=== PATIENT | female | born 1965 | race Caucasian/White ===

== ENCOUNTER 2018-01-03 12:52 | Observation (INO) ==
[2018-01-03 13:16] VITALS: BMI 25.7
[2018-01-03] MEDS ORDERED: ASPIRIN 81 MG CHEWTAB ONE (13:18)
--- NOTE | 2018-01-03 13:19 | RAD ---
Examination: Portable AP chest History: Hurting in chest Findings: Normal heart size with clear lungs and pleural spaces. Impression: No acute or significant chest findings. Reported By:
[2018-01-03] MEDS: ASPIRIN 81 MG CHEWTAB PO ONE (13:23)
[2018-01-03] MEDS ORDERED: ZOFRAN INJ 4 MG VIAL ONE (13:34)
[2018-01-03] MEDS ORDERED: ZOFRAN INJ 4 MG VIAL IVP ONE (13:37)
[2018-01-03 13:43] LABS: BLOOD UREA NITROGEN 6 mg/dL (7-18); CHLORIDE 104 mmol/L (98-107); COR NA(FOR HYPERGLY) 140 mmol/L (136-145); SODIUM 140 mmol/L (136-145); TROPONIN I < 0.02 ng/mL (0-1.5); eGFR NON BLACK RACES > 60 (>60)
[2018-01-03 13:47] LABS: ALANINE AMINOTRANSFERASE 24 Units/L (12-78); ALBUMIN 3.7 g/dL (3.4-5.0); ALKALINE PHOSPHATASE 65 Units/L (46-116); ASPARTATE AMINO TRANSFERASE 18 Units/L (15-37); CREATINE KINASE 81 Units/L (26-192); CREATINE KINASE MB < 1.0 ng/mL (0-4.0); MAGNESIUM 1.8 mg/dL (1.7-2.9); TOTAL PROTEIN 7.2 g/dL (6.4-8.2)
[2018-01-03 13:49] LABS: CKMB % 1.2 % (<4)
[2018-01-03 13:50] LABS: BASOPHILS # (AUTO) 0.1 X10^3/uL (0.0-0.1); BASOPHILS % (AUTO) 0.6 % (0.2-1.0); EOSINOPHILS # (AUTO) 0.2 x10^3/uL (0.0-0.2); EOSINOPHILS % (AUTO) 2.5 % (0.9-2.9); HEMATOCRIT 39.5 % (36.0-47.0); HEMOGLOBIN 14.2 g/dL (12.0-16.0); LYMPHOCYTES # (AUTO) 1.6 X10^3/uL (1.3-2.9); LYMPHOCYTES % (AUTO) 16.8 % (21.0-51.0); MEAN CORPUSCULAR HEMOGLOBIN 31.6 pg (27.0-34.0); MEAN CORPUSCULAR HGB CONC 35.9 g/dL (33.0-35.0); MEAN CORPUSCULAR VOLUME 88.1 fL (80.0-100.0); MEAN PLATELET VOLUME 7.9 fL (7.4-11.0); MONOCYTES # (AUTO) 0.4 x10^3/uL (0.3-0.8); MONOCYTES % (AUTO) 4.5 % (0.0-13.0); NEUTROPHILS # (AUTO) 7.4 x10^3/uL (2.2-4.8); NEUTROPHILS % (AUTO) 75.6 % (42.0-75.0); PLATELET COUNT 306 X10^3/uL (150.0-450.0); RED BLOOD COUNT 4.48 X10^6/uL (3.5-5.4); RED CELL DISTRIBUTION WIDTH 12.3 % (11.6-16.5); WHITE BLOOD COUNT 9.8 X10^3/uL (3.6-10.0)
--- NOTE | 2018-01-03 15:43 | DR.CP ---
HPI - Time Seen Time seen: 12:50 - PCP Primary Care Physician: chapincito bey - HPI Comment HPI Comment: PAIN ASSOCIATED WITH WEAKNESS AND SOB. S/L NTG DID NOT RELIEF PAIN. PATIENT SAID PAIN IS GETTING WORSE. NO FEVER, DYSURIA OR PRODUCTIVE COUGH. - Complaint Chief Complaint Doctor Comments: CHEST PAIN, INTERMITTENT PRESSURE LIKE PAIN, NON RADIATING TIMES 2 DAYS. Chief Complaint:: pt stated 2 days ago her chest started hurting and it has gotton worse. she stated she took 2 nitro at home with no relief - Reviewed Nurses Notes Review: Yes - Source History Provided: Patient - Mode of Arrival Mode of Arrival: Ambulatory - Timing Onset of Chief Complaint: 01/01/18 Came on: Suddenly - Duration Duration: Intermittent Duration: Days - Location Location of Chest Pain: Left Chest Pain Radiation Location: None - Context Onset: At rest Cardiac Risk Factors: None PE Risk Factors: None History of: None Prehospital Care: [facility] Nitro - Quality Quality: Pressure like, Heavy - Severity Severity: Moderate - Modifying Factors Worsens: Nothing Impoves: Nothing - Associated Signs and Symptoms Associated Signs and Symptoms: Shortness of Breath PMH - PMH Past Medical History: Yes Past Medical History: Anxiety Past Surgical History: No Surgical History: Unknown - Family History History of Family Medical Conditions: No - Social History Does patient currently use any type of tobacco product: No Have you used tobacco products in the last 12 months: No Type of Tobacco Use: None Does any household member use tobacco: No Alcohol Use: None Do you use any recreational Drugs:: No Lives With: Mom Lives Where: Home - infectious screening In the last 2 months have you had wt loss of >10#?: NO Have you had fever, night sweats or hemotysis?: No Have you traveled outside the country in the last 6 months?: No Isolation: Standard ROS - Review of Systems Constitutional: Weakness, Fatigue. negative: Chills, Fever Eyes: No Symptoms Reported ENTM: No Symptoms Reported Respiratoy: Short of Breath. negative: Productive Cough, Non-Productive Cough, Moist Cough, Wheezing, Hemoptysis Cardiovascular: Chest Pain Gastrointestinal/Abdominal: No Symptoms Reported. negative: Abdominal Pain, Diarrhea, Nausea, Other Genitourinary: No Symptoms Reported. negative: Dysuria, Frequency, Hematuria Neurological: Weakness, Dizziness. negative: Headache Musculoskeletal: Muscle Pain Integumentary: No Symptoms Reported Hematologic/Lymphatic: No Symptoms Reported Endocrine: No Symptoms Reported All Other Systems: Reviewed and Negative PE - General Limitations: No Limitations General Appearance: Alert - Head Head Exam: Normal Inspection - Eyes Eye exam: Normal Appearance - ENT ENT Exam: Normal External Ear Exam - Chest Chest Inspection: Symmetric Chest Wall Rise - Respiratory Respiratory Exam: Normal Lung Sounds Bilat Respiratory Exam: Bilateral Clear to Auscultation - Cardiovascular Cardiovascular Exam: Regular Rate, Normal Rhythm, Normal Heart Sounds Pulse: Normal, Radial, Femoral Edema: Normal - Abdominal Exam Abdominal Exam: Normal Bowel Sounds, Soft. negative: Tenderness - Extremities Extremities Exam: Normal Inspection - Back Back Exam: Normal Inspection - Neurologic Neurological Exam: Alert, Oriented X3, CN II-XII Intact. negative: Motor Sensory Deficit - Psychiatric Psychiatric Exam: Normal Affect, Normal Mood - Skin Skin Exam: Normal Color - Vitals Vitals: Temperature 98.9 F Pulse Rate [Brachial] 73 Pulse Rate 78 Respiratory Rate 22 Blood Pressure [Right Arm] 162/78 Blood Pressure 194/89 O2 Sat by Pulse Oximetry 100 MDM - Differential Diagnosis Differential Diagnosis: Angina, Chest Wall Pain, Cholelithasis, CHF, Costochondritis, Esophageal Reflux/Spasm, Myocardial Infarction, Pericarditis, Pleuritis, Pancreatitis, Pneumonia, Pneumothorax, Pulmonary Embolus Course - Treatment Treatment: SEE ORDERS. - Consultation Consultation Comments: DISCUSS PATIENT WITH DR. SANZ. HE WILL ADMIT PATIENT. - Education/Counseling Education/Counseling: Patient, Education Educated On: Diagnosis, Needs for Follow Up ROR - Labs Reviewed Laboratory Results Reviewed?: Yes Result Diagrams: 01/04/18 05:50 01/04/18 05:50 - XRAY XRAY Interpreted by: Radiologist XRAY Findings: REPORT DISCUSS WITH PATIENT. - EKG Rhythm: NSR (EKG NOTED.) - Labs Reviewed Laboratory: WBC 6.9 X10^3/uL (3.6-10.0) 01/04/18 05:50 RBC 4.45 X10^6/uL (3.5-5.4) 01/04/18 05:50 Hgb 14.1 g/dL (12.0-16.0) 01/04/18 05:50 Hct 39.1 % (36.0-47.0) 01/04/18 05:50 MCV 87.9 fL (80.0-100.0) 01/04/18 05:50 MCH 31.7 pg (27.0-34.0) 01/04/18 05:50 MCHC 36.1 g/dL (33.0-35.0) H 01/04/18 05:50 RDW 12.6 % (11.6-16.5) 01/04/18 05:50 Plt Count 255 X10^3/uL (150.0-450.0) 01/04/18 05:50 MPV 7.9 fL (7.4-11.0) 01/04/18 05:50 Neut % (Auto) 65.1 % (42.0-75.0) 01/04/18 05:50 Lymph % (Auto) 24.2 % (21.0-51.0) 01/04/18 05:50 [place] % (Auto) 5.8 % (0.0-13.0) 01/04/18 05:50 Eos % (Auto) 4.4 % (0.9-2.9) H 01/04/18 05:50 Baso % (Auto) 0.5 % (0.2-1.0) 01/04/18 05:50 Neut # (Auto) 4.5 x10^3/uL (2.2-4.8) 01/04/18 05:50 Lymph # (Auto) 1.7 X10^3/uL (1.3-2.9) 01/04/18 05:50 [place] # (Auto) 0.4 x10^3/uL (0.3-0.8) 01/04/18 05:50 Eos # (Auto) 0.3 x10^3/uL (0.0-0.2) H 01/04/18 05:50 Baso # (Auto) 0.0 X10^3/uL (0.0-0.1) 01/04/18 05:50 Absolute Nucleated RBC 0.1 /100WBC 01/04/18 05:50 INR Target Range - 01/03/18 13:10 INR 1.04 (0.8-1.3) 01/03/18 13:10 APTT 25.9 SECONDS (22.9-36.5) 01/03/18 13:10 PTT Comment - 01/03/18 13:10 D-Dimer 134 ng/mL (0-400) 01/03/18 13:10 Sodium 141 mmol/L (136-145) 01/04/18 05:50 Corrected Sodium TNP 01/04/18 05:50 Potassium 3.9 mmol/L (3.5-5.1) 01/04/18 05:50 Chloride 106 mmol/L (98-107) 01/04/18 05:50 Carbon Dioxide 29.5 mmol/L (21-32) 01/04/18 05:50 BUN 9 mg/dL (7-18) 01/04/18 05:50 Creatinine 0.90 mg/dL (0.55-1.02) 01/04/18 05:50 Est GFR (MDRD) Af Amer > 60 (>60) 01/04/18 05:50 Est GFR (MDRD) Non-Af > 60 (>60) 01/04/18 05:50 Glucose 104 mg/dL (65-99) H 01/04/18 05:50 Calcium 7.5 mg/dL (8.5-10.1) L 01/04/18 05:50 Corrected Calcium 8.1 mg/dL (8.5-10.1) L 01/04/18 05:50 Magnesium 1.8 mg/dL (1.7-2.9) 01/03/18 13:10 Total Bilirubin 0.60 mg/dL (0.2-1.0) 01/04/18 05:50 AST 19 Units/L (15-37) 01/04/18 05:50 ALT 21 Units/L (12-78) 01/04/18 05:50 Alkaline Phosphatase 59 Units/L (46-116) 01/04/18 05:50 Creatine Kinase 71 Units/L (26-192) 01/04/18 01:00 CK-MB (CK-2) < 1.0 ng/mL (0-4.0) 01/04/18 01:00 CK/CKMB % Calc 1.4 % (<4) 01/04/18 01:00 Troponin I < 0.02 ng/mL (0-1.5) 01/04/18 01:00 Total Protein 6.8 g/dL (6.4-8.2) 01/04/18 05:50 Albumin 3.3 g/dL (3.4-5.0) L 01/04/18 05:50 Globulin 3.5 g/dL (2.5-4.5) 01/04/18 05:50 Albumin/Globulin Ratio 0.9 Ratio (1.1-2.1) L 01/04/18 05:50 Triglycerides 200 mg/dL (0-150) H 01/04/18 05:50 Cholesterol 269 mg/dL (0-200) H 01/04/18 05:50 LDL Cholesterol, Calc 198 mg/dL (0-100) H 01/04/18 05:50 HDL Cholesterol 31 mg/dL (40-60) L 01/04/18 05:50 Cholesterol/HDL Ratio 8.7 (0.0-5.0) H 01/04/18 05:50 - Diagnosis Discharge Problem: Chest pain Qualifiers: Chest pain type: precordial pain Qualified Code(s): R07.2 - Precordial pain - Discharge Plan Disposition: ADMITTED INPATIENT Condition: Stable
[2018-01-03] MEDS ORDERED: TORADOL 30 MG VIAL IVP ONE (16:36)
[2018-01-03] MEDS ORDERED: TORADOL 30 MG VIAL ONE (16:37)
[2018-01-03] MEDS: NS 1000 ML 1,000 ML IV SCH (18:05)
[2018-01-03 19:49] LABS: CREATINE KINASE 70 Units/L (26-192); CREATINE KINASE MB < 1.0 ng/mL (0-4.0); TROPONIN I < 0.02 ng/mL (0-1.5)
[2018-01-03 19:50] LABS: CKMB % 1.4 % (<4)
[2018-01-04 01:35] LABS: CKMB % 1.4 % (<4); CREATINE KINASE 71 Units/L (26-192); CREATINE KINASE MB < 1.0 ng/mL (0-4.0); TROPONIN I < 0.02 ng/mL (0-1.5)
[2018-01-04 06:24] LABS: ALANINE AMINOTRANSFERASE 21 Units/L (12-78); ALBUMIN 3.3 g/dL (3.4-5.0); ALKALINE PHOSPHATASE 59 Units/L (46-116); ASPARTATE AMINO TRANSFERASE 19 Units/L (15-37); BLOOD UREA NITROGEN 9 mg/dL (7-18); CALCIUM 7.5 mg/dL (8.5-10.1); CARBON DIOXIDE 29.5 mmol/L (21-32); CHLORIDE 106 mmol/L (98-107); CHOL/HDL RATIO 8.7 (0.0-5.0); CHOLESTEROL 269 mg/dL (0-200); COR CA(FOR HYPOALB) 8.1 mg/dL (8.5-10.1); HDL CHOLESTEROL 31 mg/dL (40-60); SODIUM 141 mmol/L (136-145); TOTAL PROTEIN 6.8 g/dL (6.4-8.2); TRIGLYCERIDES 200 mg/dL (0-150); eGFR NON BLACK RACES > 60 (>60)
[2018-01-04 06:33] LABS: BASOPHILS % (AUTO) 0.5 % (0.2-1.0); EOSINOPHILS # (AUTO) 0.3 x10^3/uL (0.0-0.2); EOSINOPHILS % (AUTO) 4.4 % (0.9-2.9); HEMATOCRIT 39.1 % (36.0-47.0); HEMOGLOBIN 14.1 g/dL (12.0-16.0); LYMPHOCYTES # (AUTO) 1.7 X10^3/uL (1.3-2.9); LYMPHOCYTES % (AUTO) 24.2 % (21.0-51.0); MEAN CORPUSCULAR HEMOGLOBIN 31.7 pg (27.0-34.0); MEAN CORPUSCULAR HGB CONC 36.1 g/dL (33.0-35.0); MEAN CORPUSCULAR VOLUME 87.9 fL (80.0-100.0); MEAN PLATELET VOLUME 7.9 fL (7.4-11.0); MONOCYTES # (AUTO) 0.4 x10^3/uL (0.3-0.8); MONOCYTES % (AUTO) 5.8 % (0.0-13.0); NEUTROPHILS # (AUTO) 4.5 x10^3/uL (2.2-4.8); NEUTROPHILS % (AUTO) 65.1 % (42.0-75.0); PLATELET COUNT 255 X10^3/uL (150.0-450.0); RED BLOOD COUNT 4.45 X10^6/uL (3.5-5.4); RED CELL DISTRIBUTION WIDTH 12.6 % (11.6-16.5); WHITE BLOOD COUNT 6.9 X10^3/uL (3.6-10.0)
[2018-01-04] MEDS ORDERED: ZOFRAN INJ 4 MG VIAL IVP PRN (09:43)
[2018-01-04] MEDS ORDERED: MORPHINE SULFATE INJ 2 MG INJ IVP PRN (09:43)
[2018-01-04] MEDS: TYLENOL 325 MG TAB PO PRN (12:58)
[2018-01-04] MEDS: ASPIRIN 81 MG CHEWTAB PO ONE (12:59)
[2018-01-04] MEDS: NS 1000 ML 1,000 ML IV SCH ×2 (13:00→20:26)
--- NOTE | 2018-01-04 17:59 | DR.H&P ---
H&P - History & Physical for Day of: H&P Date: 01/03/18 - Chief Complaint Chief Complaint: CHEST PAIN - History of Present Illness History of Present Illness: 52 WF ER ADMISSION AFTER PRESENTING WITH CO CHEST PAIN RELEIVED WITH NITROGLYCERINE THEN RETURNED. PT STATES SHE HAS HX CAD, NO PREVIOUS CATH. PT UNDER THE CARE OF DR BUI IN [place], PT HAS PMH OF CATHIE, HRT, HYPERLIPIDEMIA AND FAMILY HX OF CAD. PT STATES HER CP WAS ACCOMPANIED BY SWEATING AND SOB. PT STATES SHE HAD LAST ABNORMAL STRESS TEST ONE YEAR AGO. PT ADMITTED R/O AMI, CARDIAC MONITORING - Past Medical History Past Medical History: Anxiety, Coronary Artery Disease - Past Surgical History Surgical History: Other - Family History Family Medical History: Diabetes Mellitus, [place], Hypertension - Social History Does patient currently use any type of tobacco product: No Have you used tobacco products in the last 12 months: No Type of Tobacco Use: None Does any household member use tobacco: No Alcohol Use: None Drug Use: None - Medications Home Medications: alprazolam [Xanax] 1 mg PO TID PRN 01/03/18 [History Confirmed 01/03/18] estrogens-methyltestosterone 1 tab PO DAILY 01/03/18 [History Confirmed 01/03/18 ] gabapentin [Neurontin] 200 mg PO TID 01/03/18 [History Confirmed 01/03/18] loratadine [Claritin] 10 mg PO DAILY 01/03/18 [History Confirmed 01/03/18] medroxyprogesterone [Provera] 2.5 mg PO DAILY 01/03/18 [History Confirmed ] omeprazole magnesium [Prilosec OTC] 20 mg PO HS 01/03/18 [History Confirmed 10/18] paroxetine HCl [Paxil] 40 mg PO HS 01/03/18 [History Confirmed 01/03/18] zolpidem [Ambien] 10 mg PO HS 01/03/18 [History Confirmed 01/03/18] - Review of Systems Constitutional: No Symptoms Reported Eyes: No Symptoms Reported ENT: No Symptoms Reported Respiratory: Shortness of Breath Cardiovascular: Chest Pain Gastrointestinal: Nausea Genitourinary: No Symptoms Reported Musculoskeletal: No Symptoms Reported Skin: No Symptoms Reported Neurological: No Symptoms Reported - Physical Exam Vital Signs: Temperature 98.3 F Pulse Rate [Right Brachial] 73 Pulse Rate [Brachial] 73 Pulse Rate 78 Respiratory Rate 20 Blood Pressure [Right Arm] 159/75 Blood Pressure 194/89 O2 Sat by Pulse Oximetry 95 Oriented: Normal Eyes: Normal Ear: Normal Nose: Normal Throat: Normal Respiratory: Clear Throughout Cardiovascular: Normal : Normal Auscultation: Bowel Sounds: Normal Palpation: Normal Tenderness: Normal Skin: Normal Musculoskeletal: Normal Psychiatric: Anxiety Affect: Anxious Speech Pattern: Clear, Appropriate - Assessment/Plan (1) Chest pain Status: Acute Plan: ADMIT, SERIAL EKG'S AND CE'S. CXR ON ADMISSION BP CONTROL. VERIFY HOME MEDS, SUPPLEMENTAL O2 PRN, ASPIRIN THERAPY (2) CAD (coronary artery disease) Status: Acute (3) Family history of early CAD Status: Acute (4) Postmenopausal HRT (hormone replacement therapy) Status: Acute (5) Hypertension Status: Acute - Allergies Allergies/Adverse Reactions: Allergies Allergy/AdvReac Type Severity Reaction Status Date / Time No Known Drug Allergies Allergy Verified 01/03/18 13:16
--- NOTE | 2018-01-04 18:02 | PCM.PROG ---
Progress Note - Progress Note for Day of Date: 01/04/18 - Subjective Subjective: 52 WF ER ADMISSION ONE AGO WITH CP, PT SERIAL CE AND EKG'S STABLE PT CONTINUES TO CO EPISODE OF CP AFTER ADMISSION, DENIES ANY CP THIS AM. PT HAS HYPERLIPIDEMIA AND HX OF ABNORMAL NUCLEAR STRESS TEST. PT CP ACCOMPANIED BY DIAPHORESIS - Past Medical Family Social History Past Med/Fam/Surg Hx: No changes since H&P Allergies: Allergies No Known Drug Allergies Allergy (Verified 01/03/18 13:16) - Review of Systems ROS: No change since H&P - Vital Signs and I&O's Vital Signs: Temperature 98.3 F Pulse Rate [Right Brachial] 73 Pulse Rate [Brachial] 73 Pulse Rate 78 Respiratory Rate 20 Blood Pressure [Right Arm] 159/75 Blood Pressure 194/89 O2 Sat by Pulse Oximetry 95 Intake and Output: Intake & Output 01/02/18 01/03/18 01/04/18 01/05/18 11:59 11:59 11:59 11:59 Intake Total 1200 / 1200 650 / 650 Balance 1200 / 1200 650 / 650 - Physical Exam Oriented: Normal Eyes: Normal Ear: Normal Nose: Normal Throat: Normal Cardiovascular: Normal : Normal Auscultation: Bowel Sounds: Normal Tenderness: Normal Skin: Normal Musculoskeletal: Normal Psychiatric: Anxiety Affect: Anxious Speech Pattern: Clear, Appropriate - Laboratory and Diagnostics Result Diagrams: 01/04/18 05:50 01/04/18 05:50 Labs: Laboratory WBC 6.9 X10^3/uL (3.6-10.0) 01/04/18 05:50 RBC 4.45 X10^6/uL (3.5-5.4) 01/04/18 05:50 Hgb 14.1 g/dL (12.0-16.0) 01/04/18 05:50 Hct 39.1 % (36.0-47.0) 01/04/18 05:50 MCV 87.9 fL (80.0-100.0) 01/04/18 05:50 MCH 31.7 pg (27.0-34.0) 01/04/18 05:50 MCHC 36.1 g/dL (33.0-35.0) H 01/04/18 05:50 RDW 12.6 % (11.6-16.5) 01/04/18 05:50 Plt Count 255 X10^3/uL (150.0-450.0) 01/04/18 05:50 MPV 7.9 fL (7.4-11.0) 01/04/18 05:50 Neut % (Auto) 65.1 % (42.0-75.0) 01/04/18 05:50 Lymph % (Auto) 24.2 % (21.0-51.0) 01/04/18 05:50 [place] % (Auto) 5.8 % (0.0-13.0) 01/04/18 05:50 Eos % (Auto) 4.4 % (0.9-2.9) H 01/04/18 05:50 Baso % (Auto) 0.5 % (0.2-1.0) 01/04/18 05:50 Neut # (Auto) 4.5 x10^3/uL (2.2-4.8) 01/04/18 05:50 Lymph # (Auto) 1.7 X10^3/uL (1.3-2.9) 01/04/18 05:50 [place] # (Auto) 0.4 x10^3/uL (0.3-0.8) 01/04/18 05:50 Eos # (Auto) 0.3 x10^3/uL (0.0-0.2) H 01/04/18 05:50 Baso # (Auto) 0.0 X10^3/uL (0.0-0.1) 01/04/18 05:50 Absolute Nucleated RBC 0.1 /100WBC 01/04/18 05:50 INR Target Range - 01/03/18 13:10 INR 1.04 (0.8-1.3) 01/03/18 13:10 APTT 25.9 SECONDS (22.9-36.5) 01/03/18 13:10 PTT Comment - 01/03/18 13:10 D-Dimer 134 ng/mL (0-400) 01/03/18 13:10 Sodium 141 mmol/L (136-145) 01/04/18 05:50 Corrected Sodium TNP 01/04/18 05:50 Potassium 3.9 mmol/L (3.5-5.1) 01/04/18 05:50 Chloride 106 mmol/L (98-107) 01/04/18 05:50 Carbon Dioxide 29.5 mmol/L (21-32) 01/04/18 05:50 BUN 9 mg/dL (7-18) 01/04/18 05:50 Creatinine 0.90 mg/dL (0.55-1.02) 01/04/18 05:50 Est GFR (MDRD) Af Amer > 60 (>60) 01/04/18 05:50 Est GFR (MDRD) Non-Af > 60 (>60) 01/04/18 05:50 Glucose 104 mg/dL (65-99) H 01/04/18 05:50 Calcium 7.5 mg/dL (8.5-10.1) L 01/04/18 05:50 Corrected Calcium 8.1 mg/dL (8.5-10.1) L 01/04/18 05:50 Magnesium 1.8 mg/dL (1.7-2.9) 01/03/18 13:10 Total Bilirubin 0.60 mg/dL (0.2-1.0) 01/04/18 05:50 AST 19 Units/L (15-37) 01/04/18 05:50 ALT 21 Units/L (12-78) 01/04/18 05:50 Alkaline Phosphatase 59 Units/L (46-116) 01/04/18 05:50 Creatine Kinase 71 Units/L (26-192) 01/04/18 01:00 CK-MB (CK-2) < 1.0 ng/mL (0-4.0) 01/04/18 01:00 CK/CKMB % Calc 1.4 % (<4) 01/04/18 01:00 Troponin I < 0.02 ng/mL (0-1.5) 01/04/18 01:00 Total Protein 6.8 g/dL (6.4-8.2) 01/04/18 05:50 Albumin 3.3 g/dL (3.4-5.0) L 01/04/18 05:50 Globulin 3.5 g/dL (2.5-4.5) 01/04/18 05:50 Albumin/Globulin Ratio 0.9 Ratio (1.1-2.1) L 01/04/18 05:50 Triglycerides 200 mg/dL (0-150) H 01/04/18 05:50 Cholesterol 269 mg/dL (0-200) H 01/04/18 05:50 LDL Cholesterol, Calc 198 mg/dL (0-100) H 01/04/18 05:50 HDL Cholesterol 31 mg/dL (40-60) L 01/04/18 05:50 Cholesterol/HDL Ratio 8.7 (0.0-5.0) H 01/04/18 05:50 - Plan (1) Chest pain Status: Acute Plan: SERIAL EKG'S AND CE'S. CXR ON ADMISSION, BP CONTROL. VERIFY HOME MEDS, SUPPLEMENTAL O2 PRN, ASPIRIN THERAPY AND STATIN THERAPY, DISCUSSED TRANSFER FOR CARDIAC CATH DUE TO RISK FACTORS AND HX OF ABNORMAL NUCLEAR STRESS TEST (2) CAD (coronary artery disease) Status: Acute (3) Family history of early CAD Status: Acute (4) Postmenopausal HRT (hormone replacement therapy) Status: Acute (5) Hypertension Status: Acute
[2018-01-04] MEDS: XANAX PO SCH ×2 (20:24→22:15)
[2018-01-04] MEDS ORDERED: AMBIEN PO SCH (21:00)
[2018-01-04] MEDS ORDERED: PriLOSEC PO SCH (21:00)
[2018-01-04] MEDS ORDERED: PAXIL PO SCH (21:00)
[2018-01-04] MEDS: NEURONTIN CAP 100 MG PO SCH (21:44)
[2018-01-05] MEDS: NEURONTIN CAP 100 MG PO SCH ×2 (05:43→14:18)
[2018-01-05] MEDS: XANAX PO SCH (08:53)
[2018-01-05] MEDS ORDERED: CLARITIN PO SCH (09:00)
[2018-01-05] MEDS: TYLENOL 325 MG TAB PO PRN (10:53)
[2018-01-05] MEDS: NS 1000 ML 1,000 ML IV SCH (14:18)
[2018-01-05 17:08] VITALS: BP 156/73
--- NOTE | 2018-01-31 07:46 | PCM.DCPLAN ---
Discharge Summary - Admission Date Date of Admission: 01/03/18 - Discharge Date Discharge Date: 01/05/18 - Admission Diagnoses (1) CAD (coronary artery disease) Status: Acute (2) Chest pain Status: Acute (3) Hypertension Status: Acute (4) Postmenopausal HRT (hormone replacement therapy) Status: Acute - Discharge Diagnoses Discharge Diagnosis: SAME ADMISSION DIAGNOSIS - Discharge Medications Discharge Medications: Home Medication List alprazolam [Xanax] 1 mg PO TID PRN 01/03/18 [History] estrogens-methyltestosterone 1 tab PO DAILY 01/03/18 [History] gabapentin [Neurontin] 200 mg PO TID 01/03/18 [History] loratadine [Claritin] 10 mg PO DAILY 01/03/18 [History] medroxyprogesterone [Provera] 2.5 mg PO DAILY 01/03/18 [History] omeprazole magnesium [Prilosec OTC] 20 mg PO HS 01/03/18 [History] paroxetine HCl [Paxil] 40 mg PO HS 01/03/18 [History] zolpidem [Ambien] 10 mg PO HS 01/03/18 [History] Prescriptions: - Hospital Course Vital Signs: Temperature 98.3 F Pulse Rate [Right Brachial] 86 Pulse Rate [Brachial] 73 Pulse Rate 78 Respiratory Rate 17 Blood Pressure [Right Arm] 156/73 Blood Pressure 194/89 O2 Sat by Pulse Oximetry 96 Latest Lab Results: Laboratory Last Values WBC 6.9 X10^3/uL (3.6-10.0) 01/04/18 05:50 RBC 4.45 X10^6/uL (3.5-5.4) 01/04/18 05:50 Hgb 14.1 g/dL (12.0-16.0) 01/04/18 05:50 Hct 39.1 % (36.0-47.0) 01/04/18 05:50 MCV 87.9 fL (80.0-100.0) 01/04/18 05:50 MCH 31.7 pg (27.0-34.0) 01/04/18 05:50 MCHC 36.1 g/dL (33.0-35.0) H 01/04/18 05:50 RDW 12.6 % (11.6-16.5) 01/04/18 05:50 Plt Count 255 X10^3/uL (150.0-450.0) 01/04/18 05:50 MPV 7.9 fL (7.4-11.0) 01/04/18 05:50 Neut % (Auto) 65.1 % (42.0-75.0) 01/04/18 05:50 Lymph % (Auto) 24.2 % (21.0-51.0) 01/04/18 05:50 [place] % (Auto) 5.8 % (0.0-13.0) 01/04/18 05:50 Eos % (Auto) 4.4 % (0.9-2.9) H 01/04/18 05:50 Baso % (Auto) 0.5 % (0.2-1.0) 01/04/18 05:50 Neut # (Auto) 4.5 x10^3/uL (2.2-4.8) 01/04/18 05:50 Lymph # (Auto) 1.7 X10^3/uL (1.3-2.9) 01/04/18 05:50 [place] # (Auto) 0.4 x10^3/uL (0.3-0.8) 01/04/18 05:50 Eos # (Auto) 0.3 x10^3/uL (0.0-0.2) H 01/04/18 05:50 Baso # (Auto) 0.0 X10^3/uL (0.0-0.1) 01/04/18 05:50 Absolute Nucleated RBC 0.1 /100WBC 01/04/18 05:50 INR Target Range - 01/03/18 13:10 INR 1.04 (0.8-1.3) 01/03/18 13:10 APTT 25.9 SECONDS (22.9-36.5) 01/03/18 13:10 PTT Comment - 01/03/18 13:10 D-Dimer 134 ng/mL (0-400) 01/03/18 13:10 Sodium 141 mmol/L (136-145) 01/04/18 05:50 Corrected Sodium TNP 01/04/18 05:50 Potassium 3.9 mmol/L (3.5-5.1) 01/04/18 05:50 Chloride 106 mmol/L (98-107) 01/04/18 05:50 Carbon Dioxide 29.5 mmol/L (21-32) 01/04/18 05:50 BUN 9 mg/dL (7-18) 01/04/18 05:50 Creatinine 0.90 mg/dL (0.55-1.02) 01/04/18 05:50 Est GFR (MDRD) Af Amer > 60 (>60) 01/04/18 05:50 Est GFR (MDRD) Non-Af > 60 (>60) 01/04/18 05:50 Glucose 104 mg/dL (65-99) H 01/04/18 05:50 Calcium 7.5 mg/dL (8.5-10.1) L 01/04/18 05:50 Corrected Calcium 8.1 mg/dL (8.5-10.1) L 01/04/18 05:50 Magnesium 1.8 mg/dL (1.7-2.9) 01/03/18 13:10 Total Bilirubin 0.60 mg/dL (0.2-1.0) 01/04/18 05:50 AST 19 Units/L (15-37) 01/04/18 05:50 ALT 21 Units/L (12-78) 01/04/18 05:50 Alkaline Phosphatase 59 Units/L (46-116) 01/04/18 05:50 Creatine Kinase 71 Units/L (26-192) 01/04/18 01:00 CK-MB (CK-2) < 1.0 ng/mL (0-4.0) 01/04/18 01:00 CK/CKMB % Calc 1.4 % (<4) 01/04/18 01:00 Troponin I < 0.02 ng/mL (0-1.5) 01/04/18 01:00 Total Protein 6.8 g/dL (6.4-8.2) 01/04/18 05:50 Albumin 3.3 g/dL (3.4-5.0) L 01/04/18 05:50 Globulin 3.5 g/dL (2.5-4.5) 01/04/18 05:50 Albumin/Globulin Ratio 0.9 Ratio (1.1-2.1) L 01/04/18 05:50 Triglycerides 200 mg/dL (0-150) H 01/04/18 05:50 Cholesterol 269 mg/dL (0-200) H 01/04/18 05:50 LDL Cholesterol, Calc 198 mg/dL (0-100) H 01/04/18 05:50 HDL Cholesterol 31 mg/dL (40-60) L 01/04/18 05:50 Cholesterol/HDL Ratio 8.7 (0.0-5.0) H 01/04/18 05:50 Hospital Course: 52 WF ER ADMISSION AFTER PRESENTING WITH CO CHEST PAIN RELEIVED WITH NITROGLYCERINE THEN RETURNED. PT STATES SHE HAS HX CAD, NO PREVIOUS CATH. PT UNDER THE CARE OF DR BUI IN [place], PT HAS PMH OF CATHIE, HRT, HYPERLIPIDEMIA AND FAMILY HX OF CAD. PT STATES HER CP WAS ACCOMPANIED BY SWEATING AND SOB. PT STATES SHE HAD LAST ABNORMAL STRESS TEST ONE YEAR AGO. PT ADMITTED R/O AMI, CARDIAC MONITORING. CARDIAC WORKUP WAS UNREMARKABLE. PATIENT WAS DISCHARGED HOME TO BE FOLLOWED ON OP BASIS. - Discharge Plan Disposition: 01 HOME, SELF-CARE Condition: Stable - Follow ups/Referrals Follow ups/Referrals: Rocky BUI [REFERRING] - 01/14/18 2:00 pm ROB BUENO [Nurse Practitioner] - 01/07/18 10:45 am - Instructions Instructions: Nonspecific Chest Pain, [id number], Hypertension, [id number] Forms: Patient Portal
== END 2018-01-05 17:15 | disposition home or self-care (01) ==
LOC: MED/SURG 12:52 → ER 12:52 → MED/SURG 16:58
PROVIDERS: ADMIT Internal Medicine; ATTEND Internal Medicine
DX: Z79.890 Hormone replacement therapy; R06.02 Shortness of breath; F41.8 Other specified anxiety disorders; I25.10 Atherosclerotic heart disease of native coronary artery without angina pectoris; E78.2 Mixed hyperlipidemia; R07.89 Other chest pain; I10 Essential (primary) hypertension
CPT/HCPCS: 36415; 71010; 71045; 80053; 80061; 82550; 82553; 83735; 84484; 85025; 85378; 85610; 85730; 93005; 93010; 94760; 96374; 96375; 99218; 99284; A4222; G0378; J1885; J2405; J3490; J7030